=== PATIENT | male | born 1990 | race African-American/Black ===

== ENCOUNTER → 2017-08-22 | Outpatient (CLI) | payer OTHER | LOC: M LRY 12:45 | DX: S69.92XA Unspecified injury of left wrist, hand and finger(s), initial encounter (principal); R93.7 Abnormal findings on diagnostic imaging of other parts of musculoskeletal system | CPT/HCPCS: 73130 ==

== ENCOUNTER → 2024-12-05 | Outpatient (CLI) | payer OTHER | LOC: M SLEEP 20:00 | PROVIDERS: ATTEND Family Medicine | DX: G47.33 Obstructive sleep apnea (adult) (pediatric) (principal) ==

== ENCOUNTER → 2025-04-21 | Outpatient (CLI) | payer OTHER | LOC: M SLEEP 20:00 | PROVIDERS: ATTEND Family Medicine | DX: G47.33 Obstructive sleep apnea (adult) (pediatric) (principal) ==